=== PATIENT | female | born 1950 | race Caucasian/White ===

== ENCOUNTER → 2019-08-21 | Outpatient (REF) | payer MEDICARE, MEDICAID ==
[2019-08-21 16:20] LABS: INR 1.81; PROTHROMBIN TIME 20.7 SECONDS (11.8-14.0)
== END ==
LOC: M SHH 15:01 → M LAB REF 15:01
PROVIDERS: ATTEND Family Medicine
DX: Z51.81 Encounter for therapeutic drug level monitoring (principal); Z79.01 Long term (current) use of anticoagulants

== ENCOUNTER → 2019-12-06 | Outpatient (CLI) | payer MEDICARE, MEDICAID ==
--- NOTE | 2019-12-06 11:43 | REP ---
CT LEFT SHOULDER WITHOUT CONTRAST: CT left shoulder performed in the axial plane. Sagittal and coronal reconstruction images are performed. I have no prior study for comparison. Metallic left shoulder prosthesis is noted. The stem of the humeral portion of the prosthesis is centrally located in the proximal humeral shaft. The glenoid component appears well positioned with screws extending into the glenoid portion of the scapula. There is moderate narrowing of the acromioclavicular joint, which appears well aligned. There is a pseudoarticulation between the clavicle and coracoid process with mild spurring at that location. Integrity of the bone along the metallic prosthetic components cannot be accurately assessed due to significant streak metallic artifact. There is no gross fracture of the visualized humeral shaft. Recommend correlation with plain films. Electronically Signed by Chuckie Avendaño MD 12/06/2019 12:57 P
== END ==
LOC: M RAD 10:24
PROVIDERS: ATTEND Orthopaedic Surgery Sports Medicine
DX: S42.202D Unspecified fracture of upper end of left humerus, subsequent encounter for fracture with routine healing (principal)

== ENCOUNTER → 2021-02-23 | Outpatient (REF) | payer MEDICARE, MEDICAID | LOC: M LAB REF 18:19 | PROVIDERS: ATTEND Internal Medicine Nephrology | DX: E83.42 Hypomagnesemia (principal) ==

== ENCOUNTER → 2021-09-07 | Outpatient (REF) | payer MEDICARE, MEDICAID | LOC: M LAB REF 16:41 | PROVIDERS: ATTEND Internal Medicine Nephrology | DX: E83.42 Hypomagnesemia (principal) ==